=== PATIENT | female | born 1995 | race Hispanic/Latino ===

== ENCOUNTER 2020-08-10 17:18 | Emergency (ER) | payer OTHER ==
[~2020-08-10] VITALS: Ht 154.9 cm; Wt 107.3 kg
[2020-08-10] MEDS ORDERED: ZITHROMAX250 MG PO (18:53)
== END 2020-08-10 19:10 | disposition home or self-care (01) ==
LOC: FSED 17:48
DX: J01.90 Acute sinusitis, unspecified (principal); H92.03 Otalgia, bilateral
CPT/HCPCS: 99283